=== PATIENT | female | born 1940 | race Caucasian/White ===

== ENCOUNTER 2021-07-09 16:24 | Emergency (ER) | payer MEDICARE, OTHER, SELFPAY ==
[2021-07-09] VITALS (15 sets, daily range): BP systolic 143–176; BP diastolic 56–77; PULSE 59–83; RESP 13–28; TEMP 36.6; O2SAT 95–100
--- NOTE | 2021-07-09 16:43 | DI.RAD.S_ITS ---
PROCEDURE: XR CHEST 1V INDICATIONS: syncope TECHNIQUE: One view of the chest was acquired. COMPARISON: None. FINDINGS: Surgical changes and devices: None. Lungs and pleura: Lungs are clear. No pleural effusions or pneumothorax. Mediastinum: Mediastinal contours appear normal. Heart size is normal. Bones and chest wall: No suspicious bony lesions. Overlying soft tissues appear unremarkable. IMPRESSION: 1. No acute cardiopulmonary disease. Dictated by: Viktor Montiel M.D. on 07/09/2021 at 18:06 Approved by: Viktor Montiel M.D. on 07/09/2021 at 18:08
--- NOTE | 2021-07-09 16:50 | ED_ITS ---
HPI - Syncope General Chief Complaint: Syncope Stated Complaint: LOC Time Seen by Provider: 07/09/21 16:32 Source: patient and EMS Mode of arrival: EMS Limitations: no limitations History of Present Illness HPI narrative: This is a 80-year-old female comes with what is described as a syncopal episode. Patient was seated at a restaurant with her . There is no fall or trauma. She was feeling unwell insert dizzy just before and had what sounds like approximately 20 seconds loss of consciousness. Patient's family put her arms above her head to see if this would help her symptoms. No tonic clonic activity as described. Patient shortly after improved her mentation. Medics noted at the scene that she was hypotensive in the 70 systolic range in improved when laid flat to 110s, was also noted her heart rate was in the 40s initially and improved as well. Patient states she has had episodes with funny numbers on her watch in terms of her heart rate being too high for prolonged periods after exercising but states she saw ticketing clerk who felt that this was not concerning. There was discussion of a Holter or ZIO patch but her skin is very sensitive so this was deferred at the time. Patient feels back to her normal self at this time. She denies any headache, she denies any chest pain or shortness of breath. No nausea or vomiting no abdominal or back or flank pain. She denies any black or bloody stools. She has had occasional diarrhea but not frequent or high volumes which she relates to chronic IBS. Patient denies any dysuria, urgency or frequency. She states she takes medicine for blood pressure and cholesterol. She denies any prior cardiac events, cardiac arrhythmias. 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 She is currently anticoagulated and taking her medication daily. Review of Systems Review of Systems ROS Unobtainable: All systems reviewed & are unremarkable except as noted in HPI and below Patient History Social History Smoking Status: Never smoker Smoking Status: Never smoker Substance Use Type: does not use Exam Narrative Exam Narrative: GEN: well nourished, well appearing female, alert and oriented x 3, patient appears to be in mild distress. HEENT: Atraumatic, pupils are equal round reactive to light, extraocular movements are intact, nares are clear, TMs are clear with no fluid, there is no conjunctival pallor. Throat is clear without any exudates, erythema, tonsillar enlargement or uvular deviation, no facial droop. HEART: Regular rate and rhythm without murmur, clicks, rubs. Pulses are equal in upper and lower extremities LUNGS:Lungs clear to auscultation, no wheezes, rales, crackles, chest moves symmetrically ABD:bowel sounds normal, soft, non-tender, no guarding, rebound, rigidity, no masses noted, no hepatosplenomegaly :No CVA tenderness MSCL: Non-tender, no muscle atrophy, muscles strength 5/5 upper and lower extremities, full range of motion, normal gait NEURO:CN 2-12 intact, sensation normal, reflexes 2/4 upper and lower ext remities. SKIN: Rash, erythema or skin changes. Initial Vital Signs Initial Vital Signs: Vital Signs Temperature 97.8 F 07/09/21 16:24 Pulse Rate 70 07/09/21 16:24 Respiratory Rate 16 07/09/21 16:24 Blood Pressure 165/72 H 07/09/21 16:24 Pulse Oximetry 99 07/09/21 16:24 Scores GCS Edwards coma scale eye opening: Spontaneous Edwards coma scale verbal response: Orientated Ana coma scale motor response: Obey commands Edwards coma scale total score: 15 Course Orders Ordered: ED Orders 07/09/21 16:00 Complete Blood Count AUTO DIFF Stat Comprehensive Metabolic Panel Stat D Dimer Stat Lactate (Lactic Acid) Stat NT-proBNP (BNP-Adult 18+) Stat Partial Thromboplastin Time Stat Prothrombin Time INR Stat Troponin & CK Cardiac Panel Stat 07/09/21 16:42 EKG-12 Lead Stat 07/09/21 16:43 XR chest 1V Stat 07/09/21 19:00 Troponin I Stat Discontinued Medications Sodium Chloride (Normal Saline 0.9%) 1,000 mls @ 150 mls/hr IV CONT SRIDEVI Last Infusion: 07/09/21 19:50 Dose: 0 mls/hr Documented by: Admin: 07/09/21 16:59 Dose: 150 mls/hr Documented by: LÁZARO Reevaluation(s) Reevaluation #1: Patient feels much better on recheck. She is able to ambulate to the bathroom without issue. Her blood pressures have been appropriate here in the department. We discussed current findings. Plan for repeat troponin if no acute changes patient will be discharged home to follow-up with her primary care and ticketing clerk. She notes that she has been told to try a Holter monitor or ZIO patch in the past after she had some elevated numbers on her watch. She is very sensitive to adhesive. We discussed potential alternate option called Molly but that I would recommend discussing this with her ticketing clerk 1st as they may feel differently. All questions were answered. Patient was encouraged to return for recheck if she has any additional symptoms. Vital Signs Vital signs: Vital Signs - 8 hr 07/09/21 16:24 07/09/21 16:38 07/09/21 16:39 Temperature 97.8 F Pulse Rate 70 66 65 Pulse Rate [Orthostatic Lying] Pulse Rate [Orthostatic Sitting] Pulse Rate [Orthostatic Standing] Respiratory Rate 16 19 14 Blood Pressure 165/72 H 165/72 H Blood Pressure [Orthostatic Lying] Blood Pressure [Orthostatic Sitting] Blood Pressure [Orthostatic Standing] Pulse Oximetry 99 98 99 07/09/21 16:41 07/09/21 16:45 07/09/21 16:46 Temperature Pulse Rate 61 63 62 Pulse Rate [Orthostatic Lying] 59 L Pulse Rate [Orthostatic Sitting] 63 Pulse Rate [Orthostatic Standing] 62 Respiratory Rate 13 18 28 H Blood Pressure 149/67 H 152/56 H 158/68 H Blood Pressure [Orthostatic Lying] 149/67 H Blood Pressure [Orthostatic Sitting] 152/56 H Blood Pressure [Orthostatic Standing] 158/68 H Pulse Oximetry 100 100 100 07/09/21 17:00 07/09/21 17:30 07/09/21 18:00 Temperature Pulse Rate 68 65 68 Pulse Rate [Orthostatic Lying] Pulse Rate [Orthostatic Sitting] Pulse Rate [Orthostatic Standing] Respiratory Rate 23 15 19 Blood Pressure 153/68 H 143/67 H 148/65 H Blood Pressure [Orthostatic Lying] Blood Pressure [Orthostatic Sitting] Blood Pressure [Orthostatic Standing] Pulse Oximetry 99 99 95 07/09/21 18:30 07/09/21 18:55 07/09/21 19:11 Temperature Pulse Rate 75 74 83 Pulse Rate [Orthostatic Lying] Pulse Rate [Orthostatic Sitting] Pulse Rate [Orthostatic Standing] Respiratory Rate 24 18 24 Blood Pressure 148/69 H Blood Pressure [Orthostatic Lying] Blood Pressure [Orthostatic Sitting] Blood Pressure [Orthostatic Standing] Pulse Oximetry 98 98 07/09/21 19:30 07/09/21 19:52 07/09/21 19:53 Temperature Pulse Rate 72 80 Pulse Rate [Orthostatic Lying] Pulse Rate [Orthostatic Sitting] Pulse Rate [Orthostatic Standing] Respiratory Rate 24 24 Blood Pressure 176/77 H Blood Pressure [Orthostatic Lying] Blood Pressure [Orthostatic Sitting] Blood Pressure [Orthostatic Standing] Pulse Oximetry MDM - Syncope Lab Data Result diagrams: 07/09/21 16:00 07/09/21 16:00 Labs: Lab Results 07/09/21 07/09/21 07/09/21 Range/Units 16:00 16:00 16:00 WBC 8.3 (4.5-11.0) X10^3/uL RBC 4.47 (4.0-5.2) X10^6/uL Hgb 13.5 (12.0-16.0) g/dL Hct 38.1 (36-46) % MCV 85.2 (80-100) fL MCH 30.2 (26-34) PG MCHC 35.4 (30-36) % RDW 13.3 (11.6-14.8) % Plt Count 334 (150-400) X10^3/uL Neut % (Auto) 53.1 (50-75) % Lymph % (Auto) 36.1 (25-40) % [place] % (Auto) 8.5 (3-14) % Eos % (Auto) 1.3 L (2-4) % Baso % (Auto) 1.0 (0-2) % Neut # (Auto) 4400 (0227-2778) /uL Lymph # (Auto) 3000 (8235-3183) /uL [place] # (Auto) 700 (0-900) /uL Eos # (Auto) 100 (0-450) /uL Baso # (Auto) 100 (0-100) /uL PT 12.8 H (10.1-12.7) SECONDS INR 1.1 (0.9-1.3) APTT 26 L (26.4-36.2) SECONDS D-Dimer < 200 (<230) ng/mL Sodium 132 L (137-145) mmol/L Potassium 3.8 (3.4-5.1) mmol/L Chloride 97 L (98-107) mmol/L Carbon Dioxide 27 (22-32) mmol/L BUN 11 (7-17) mg/dL Creatinine 0.77 (0.52-1.04) mg/dL Estimated GFR > 60.0 (>60) mL/min BUN/Creatinine Ratio 14.3 (6-22) Glucose 113 H (80-110) mg/dL Lactate (0.7-2.1) mmol/L Calcium 9.1 (8.4-10.2) mg/dL Total Bilirubin 0.5 (0.2-1.3) mg/dL AST 43 H (14-36) IU/L ALT 20 (<35) IU/L Alkaline Phosphatase 55 (38-126) U/L Total Creatine Kinase 242 H (30-135) U/L CK-MB (CK-2) 4.19 H (<2.37) ng/mL CK-MB (CK-2) Rel Index 1.7 (1.5-5.0) % Troponin I < 0.012 (0.01-0.034) ng/mL NT-Pro-B Natriuret Pep 99 (<450) pg/mL Total Protein 7.3 (6.3-8.2) g/dL Albumin 4.5 (3.5-5.0) g/dL Globulin 2.8 (1.7-4.1) g/dL Albumin/Globulin Ratio 1.6 (1.0-2.8) 07/09/21 07/09/21 Range/Units 16:00 19:00 WBC (4.5-11.0) X10^3/uL RBC (4.0-5.2) X10^6/uL Hgb (12.0-16.0) g/dL Hct (36-46) % MCV (80-100) fL MCH (26-34) PG MCHC (30-36) % RDW (11.6-14.8) % Plt Count (150-400) X10^3/uL Neut % (Auto) (50-75) % Lymph % (Auto) (25-40) % [place] % (Auto) (3-14) % Eos % (Auto) (2-4) % Baso % (Auto) (0-2) % Neut # (Auto) (2849-0665) /uL Lymph # (Auto) (7991-3124) /uL [place] # (Auto) (0-900) /uL Eos # (Auto) (0-450) /uL Baso # (Auto) (0-100) /uL PT (10.1-12.7) SECONDS INR (0.9-1.3) APTT (26.4-36.2) SECONDS D-Dimer (<230) ng/mL Sodium (137-145) mmol/L Potassium (3.4-5.1) mmol/L Chloride (98-107) mmol/L Carbon Dioxide (22-32) mmol/L BUN (7-17) mg/dL Creatinine (0.52-1.04) mg/dL Estimated GFR (>60) mL/min BUN/Creatinine Ratio (6-22) Glucose (80-110) mg/dL Lactate 1.8 (0.7-2.1) mmol/L Calcium (8.4-10.2) mg/dL Total Bilirubin (0.2-1.3) mg/dL AST (14-36) IU/L ALT (<35) IU/L Alkaline Phosphatase (38-126) U/L Total Creatine Kinase (30-135) U/L CK-MB (CK-2) (<2.37) ng/mL CK-MB (CK-2) Rel Index (1.5-5.0) % Troponin I < 0.012 (0.01-0.034) ng/mL NT-Pro-B Natriuret Pep (<450) pg/mL Total Protein (6.3-8.2) g/dL Albumin (3.5-5.0) g/dL Globulin (1.7-4.1) g/dL Albumin/Globulin Ratio (1.0-2.8) Urine Dip Bedside Urine Glucose Negative Bedside Urine Bilirubin - Negative Bedside Urine Ketone - Negative Urine Specific [place] 1.015 Bedside Urine Occult Blood - Negative Bedside Urine pH 6.5 Bedside Urine Protein - Negative Bedside Urine Urobilinogen - Negative Bedside Urine Nitrite - Negative Bedside Urine Leukocytes + 70 Esterase Imaging Data Chest x-ray: Radiologist's Impression: [address] [address] XRay Report Signed Patient: Shawna Barahona MR#: [id number] : 1940 Acct:[id number] Age/Sex: 80 / F Date of Service: 07/09/21 Loc: ED Accession Number: [id number] ?? Procedure: XR chest 1V Ordering Provider: Ani Cabello D.O. PROCEDURE:? XR CHEST 1V ? INDICATIONS:? syncope ? TECHNIQUE:? One view of the chest was acquired.? ? COMPARISON:? None. ? FINDINGS:? ? Surgical changes and devices:? None.? ? Lungs and pleura:? Lungs are clear.? No pleural effusions or pneumothorax.? ? Mediastinum:? Mediastinal contours appear normal.? Heart size is normal.? ? Bones and chest wall:? No suspicious bony lesions.? Overlying soft tissues appear unremarkable.? ? IMPRESSION:? ? 1.? No acute cardiopulmonary disease. ? ? ? Dictated by: Viktor Montiel M.D. on 07/09/2021 at 18:06 ? ? Approved by: Viktor Montiel M.D. on 07/09/2021 at 18:08?? ECG Data Attestation: I personally reviewed and interpreted this ECG as follows: Prior ECG tracings: not available for review Interpretation: Sinus rhythm rate of 60 [place] 150 QRS is 78 QTC of 442. No acute ST changes appreciated. No priors available for comparison. MDM Narrative Medical decision making narrative: This is a 80-year-old female who had what sounds like a syncopal episode today which was witnessed, non-traumatic with her family. Patient does not have acute EKG changes, chest x-ray is negative with no major lab abnormalities. Patient's troponin x2 is negative. Was obtained as patient has had prior emboli in the past with known factor 5 Leiden although she is fully and appropriately anticoagulated at this time. This was negative making my suspicion for PE being the source of her symptoms today much lower particularly with a negative troponin and no acute EKG changes appreciated. Discharge Plan Departure Patient Disposition: Home Clinical Impression: Syncope Instructions: DI for Syncope in Adults (Fainting) Activity Restrictions/Additional Instructions: Follow-up with your physician for recheck. May be appropriate also follow with her ticketing clerk. I would recommend if your skin can tolerated doing a ZIO patch or a Holter monitor. You can also ask your physician about [employer]. This is not a true chief medical technologist and essentially gives a telemetry strip. You do not have to purchase this but is an option that does not require adhesive if you would like to try it. Return if you have any new or recurrent symptoms, headaches, chest pain, shortness of breath, recurrent lightheadedness or passing out, persistent vomiting, new swelling in her extremities or other new or concerning symptoms. Referrals: Miscellaneous,Doctor, MD [Primary Care Provider] -
[2021-07-09 16:51] LABS: Add Manual Diff / Slide Review NO; Basophils Absolute Auto 100 /uL (0-100); Eosinophils Absolute Auto 100 /uL (0-450); Eosinophils Percent Auto 1.3 % (2-4); Hematocrit 38.1 % (36-46); Hemoglobin 13.5 g/dL (12.0-16.0); Lymphocytes Absolute Auto 3000 /uL (1100-4500); Lymphocytes Percent Auto 36.1 % (25-40); Mean Corpuscular HGB Conc 35.4 % (30-36); Mean Corpuscular Hemoglobin 30.2 PG (26-34); Mean Corpuscular Volume 85.2 fL (80-100); Monocytes Absolute Auto 700 /uL (0-900); Monocytes Percent Auto 8.5 % (3-14); Neutrophils Absolute Auto 4400 /uL (1500-7000); Neutrophils Percent Auto 53.1 % (50-75); Platelet Count 334 X10^3/uL (150-400); Red Blood Cell Count 4.47 X10^6/uL (4.0-5.2); Red Cell Distribution Width 13.3 % (11.6-14.8); White Blood Cell Count 8.3 X10^3/uL (4.5-11.0)
[2021-07-09 16:53] LABS: INR 1.1 (0.9-1.3); Prothrombin Time 12.8 SECONDS (10.1-12.7)
[2021-07-09 16:56] LABS: PTT Partial Thromboplastin Tim 26 SECONDS (26.4-36.2)
[2021-07-09 16:57] LABS: D Dimer < 200 ng/mL (<230)
[2021-07-09 16:58] LABS: Alanine Aminotransferase 20 IU/L (<35); Albumin 4.5 g/dL (3.5-5.0); Albumin Globulin Ratio 1.6 (1.0-2.8); Alkaline Phosphatase 55 U/L (38-126); Aspartate Aminotransferase 43 IU/L (14-36); BUN Creatinine Ratio 14.3 (6-22); Bilirubin Total 0.5 mg/dL (0.2-1.3); Blood Urea Nitrogen 11 mg/dL (7-17); Calcium 9.1 mg/dL (8.4-10.2); Carbon Dioxide 27 mmol/L (22-32); Chloride 97 mmol/L (98-107); Creatine Kinase 242 U/L (30-135); Estimated Glomerular Filt Rate > 60.0 mL/min (>60); Globulin 2.8 g/dL (1.7-4.1); Glucose 113 mg/dL (80-110); HEMOLYSIS < 15 (0-50); Lactate (Lactic Acid) 1.8 mmol/L (0.7-2.1); Potassium 3.8 mmol/L (3.4-5.1); Sodium 132 mmol/L (137-145); Total Protein 7.3 g/dL (6.3-8.2)
[2021-07-09] MEDS: SODIUM CHLORIDE 0.9% 1,000 ML 150 ML IV (16:59)
[2021-07-09 17:09] LABS: NT-proBNP (BNP-Adult 18+) 99 pg/mL (<450); Troponin I < 0.012 ng/mL (0.01-0.034)
[2021-07-09 17:13] LABS: CKMB % Relative Index 1.7 % (1.5-5.0); Creatine Kinase MB 4.19 ng/mL (<2.37)
[2021-07-09 19:33] LABS: Troponin I < 0.012 ng/mL (0.01-0.034)
== END 2021-07-09 20:06 | disposition home or self-care (01) ==
PROVIDERS: Emergency Provider Emergency Medicine
DX: R55 Syncope and collapse (principal); R42 Dizziness and giddiness; I95.9 Hypotension, unspecified
CPT/HCPCS: 36415; 71045; 80053; 81003; 82550; 82553; 83605; 83880; 84484; 85025; 85379; 85610; 85730; 93005; 93010; 96360; 96361; 99284